=== PATIENT | male | born 1980 | race Two or more races ===

== ENCOUNTER 2021-04-27 08:33 | Emergency (ER) | payer OTHER ==
[~2021-04-27] VITALS: Ht 175.3 cm; Wt 71.7 kg
[2021-04-27 08:36] VITALS: BP 106/66
[2021-04-27 09:43] VITALS: BP 135/74
[2021-04-27] MEDS ORDERED: IBUP-2070 PO (09:47)
== END 2021-04-27 10:12 ==
LOC: EDH 08:33
DX: U07.1 COVID-19 (principal); J98.8 Other specified respiratory disorders
CPT/HCPCS: 87635; 87880; 99283; C9803